=== PATIENT | female | born 1955 | race Caucasian/White ===

== ENCOUNTER 2017-08-30 10:16 | Emergency (ER) | payer OTHER ==
[~2017-08-30] VITALS: Ht 175.3 cm; Wt 89.4 kg
[2017-08-30] MEDS ORDERED: [UNRECOGNIZED DRUG - REMARK] OP (10:30)
[2017-08-30] MEDS ORDERED: KETO10TA2 PO (13:58)
== END 2017-08-30 14:39 | disposition home or self-care (01) ==
LOC: ER 10:16
DX: K80.80 Other cholelithiasis without obstruction (principal); R10.11 Right upper quadrant pain